=== PATIENT | male | born 1980 | race Asian ===

== ENCOUNTER 2020-03-05 15:24 | Emergency (ER) | payer SELFPAY ==
[~2020-03-05] VITALS: Ht 175.3 cm; Wt 67.1 kg
[2020-03-05 15:28] VITALS: BP 122/91
--- NOTE | 2020-03-05 15:36 | NUR ---
PT AMBULATED TO ER BED 02
[2020-03-05] MEDS ORDERED: NACL 0.9% 1,000 ML IV ONE (15:40)
[2020-03-05 15:59] LABS: BASOPHILS # (AUTO) 0.1 K/uL (0.00-0.22); BASOPHILS % (AUTO) 1.1 % (0.0-2.0); EOSINOPHILS # (AUTO) 0.2 K/uL (0-0.4); EOSINOPHILS % (AUTO) 2.2 % (0.0-4.0); HEMATOCRIT 41.1 % (36-52); HEMOGLOBIN 13.9 g/dL (12.0-18.0); LYMPHOCYTES # (AUTO) 2.8 K/uL (2.0-11.5); LYMPHOCYTES % (AUTO) 27.3 % (20.5-51.1); MEAN CORPUSCULAR HEMOGLOBIN 33 pg (27-31); MEAN CORPUSCULAR HGB CONC 34 g/dL (33-37); MEAN CORPUSCULAR VOLUME 97.2 fL (80-94); MONOCYTES # (AUTO) 0.8 K/uL (0.8-1.0); MONOCYTES % (AUTO) 7.8 % (1.7-9.3); NEUTROPHILS # (AUTO) 6.2 K/uL (1.8-7.7); NEUTROPHILS % (AUTO) 61.6 % (42.2-75.2); PLATELET COUNT (AUTO) 308 K/uL (140-450); RED BLOOD CELL COUNT(AUTO) 4.22 MIL/uL (4.20-6.10); RED CELL DISTRIBUTION WIDTH 13.4 % (11.6-13.7); WHITE BLOOD COUNT (AUTO) 10.1 K/uL (4.8-10.8)
--- NOTE | 2020-03-05 16:11 | NUR ---
39 YO MALE HOMELESS BIBA C/O DIZZINESS, DEHYDRATION X TODAY. PER EMS HIS BLOOD SUGAR 98. MED HX: SCHIZOPHRENIA
[2020-03-05 16:17] LABS: ALBUMIN 3.8 g/dL (3.4-5.0); ASPARTATE AMINOTRANSFERASE 25 U/L (15-37); CARBON DIOXIDE 28.1 mmol/L (21-32); CHLORIDE 102 mmol/L (98-107); CREATININE 1.1 mg/dL (0.6-1.3); GFR ARICAN-AMERICAN 95 mL/min (>90); GLUCOSE 93 mg/dL (74-106); POTASSIUM 4.1 mmol/L (3.5-5.1); SODIUM SERUM 137 mmol/L (136-145); TOTAL BILIRUBIN 0.9 mg/dL (0.0-1.0); UREA NITROGEN, BLOOD 19 mg/dL (7-18)
[2020-03-05 16:18] LABS: ACETAMINOPHEN < 0.5 ug/ml (10-30); SALICYLATE < 2.8 mg/dL (2.8-20.0)
[2020-03-05 16:38] LABS: BARBITURATE, URINE NEGATIVE ng/ml (NEG <=200); BENZODIAZEPINE, URINE NEGATIVE ng/mL (NEG <=200); CANNABINOID, URINE NEGATIVE ng/mL (NEG <=50); COCAINE, URINE NEGATIVE ng/mL (NEG <=300); OPIATE, URINE NEGATIVE ng/mL (NEG <=2000); PHENCYCLIDINE SCREEN,URINE NEGATIVE ng/mL (NEG <=25)
[2020-03-05 17:13] VITALS: BP 100/55
--- NOTE | 2020-03-05 17:13 | NUR ---
Pt is homeless, refused homeless/[facility] resource packet, stated he will go back to "streets." Pt was given meal. Pt refused bus pass due to buses free at this time due to covid-19 pandemic. Pt with appropriate clothing for weather.
--- NOTE | 2020-03-05 17:14 | NUR ---
Patient discharged with v/s stable. Written and verbal after care instructions given and explained. Patient verbalized understanding. Ambulatory with to car. All questions addressed prior to discharge. Advised to follow up with PMD.
== END 2020-03-05 17:14 | disposition home or self-care (01) ==
LOC: MED 15:24
DX: F15.10 Other stimulant abuse, uncomplicated (principal); E86.0 Dehydration; Z59.0 Homelessness
CPT/HCPCS: 36415; 80053; 80305; 85025; 93005; 96360; 99284; G0480; G0482; J7030